=== PATIENT | female | born 1995 | race African-American/Black ===

== ENCOUNTER 2018-12-15 12:43 | Emergency (ER) | payer SELFPAY ==
[~2018-12-15] VITALS: Ht 165.1 cm; Wt 59.0 kg
[2018-12-15 12:53] VITALS: BP 131/87
== END 2018-12-15 15:39 | disposition left against medical advice (07) ==
LOC: ER 12:43
DX: Z53.21 Procedure and treatment not carried out due to patient leaving prior to being seen by health care provider (principal)

== ENCOUNTER 2018-12-16 09:15 | Emergency (ER) | payer OTHER ==
[~2018-12-16] VITALS: Ht 160 cm; Wt 62.0 kg
[2018-12-16] MEDS ORDERED: ACETAMINOPHEN 325MG TABLET PO ONE (12:15)
[2018-12-16 13:04] LABS: CLARITY URINE CLEAR (CLEAR); COLOR URINE YELLOW (YELLOW); KETONES URINE NEGATIVE (NEGATIVE); LEUKOCYTE ESTERASE URINE NEGATIVE (NEGATIVE); NITRITE URINE NEGATIVE (NEGATIVE); OCCULT BLOOD URINE 3+ (NEGATIVE); PROTEIN URINE NEGATIVE (NEGATIVE); SPECIFIC GRAVITY URINE 1.017 (1.005-1.030); UROBILINOGEN URINE 0.2 E.U./dL (0.2-1.0)
[2018-12-16 13:25] LABS: *AMPHETAMINES SCREEN URINE NEGATIVE (NEGATIVE); *BARBITURATES SCREEN URINE NEGATIVE (NEGATIVE); *BENZODIAZEPINES SCREEN URINE NEGATIVE (NEGATIVE); *COCAINE SCREEN URINE NEGATIVE (NEGATIVE)
[2018-12-16 13:26] LABS: METHADONE URINE SCREEN NEGATIVE (NEGATIVE); OPIATES URINE SCREEN NEGATIVE (NEGATIVE); PHENCYCLIDINE URINE SCREEN NEGATIVE (NEGATIVE)
[2018-12-16 13:27] LABS: CANNABINOID URINE SCREEN PRESUMTIVE POSITIVE (NEGATIVE)
[2018-12-16 16:19] VITALS: BP 121/68
== END 2018-12-16 16:19 | disposition home or self-care (01) ==
LOC: ER 09:48
DX: S93.601A Unspecified sprain of right foot, initial encounter (principal); R31.9 Hematuria, unspecified; R82.71 Bacteriuria; M43.9 Deforming dorsopathy, unspecified; J06.9 Acute upper respiratory infection, unspecified; Z87.440 Personal history of urinary (tract) infections; F12.10 Cannabis abuse, uncomplicated; Z98.890 Other specified postprocedural states; V49.88XA Car occupant (driver) (passenger) injured in other specified transport accidents, initial encounter; Y93.89 Activity, other specified; Y92.89 Other specified places as the place of occurrence of the external cause; Y99.8 Other external cause status
CPT/HCPCS: 73600; 73620; 80305; 81025; 99284

== ENCOUNTER 2019-02-21 16:41 | Emergency (ER) | payer SELFPAY ==
[~2019-02-21] VITALS: Ht 160 cm; Wt 61.0 kg
[2019-02-21] MEDS ORDERED: ONDANSETRON HCL 4MG/2ML INJ IV STA (17:43)
[2019-02-21] MEDS ORDERED: SODIUM CHLORIDE 0.9% 2,000 ML IV ONE (17:43)
[2019-02-21 17:57] LABS: HEMATOCRIT. 41.1 % (36.0-48.0); HEMOGLOBIN. 14.1 g/dL (12.0-16.0); MEAN CORPUSCULAR HEMOGLOBIN 33.4 pg (28.0-32.0); MEAN CORPUSCULAR VOLUME 97.2 fL (81.0-99.0); MEAN PLATELET VOLUME 9.3 fl (7.4-10.4); PLATELET 224 x1000/uL (130-400); RED BLOOD CELL COUNT 4.23 mill/uL (4.2-5.4); RED CELL DISTRIBUTION WIDTH 12.6 % (11.6-14.6)
[2019-02-21 18:02] LABS: CHLORIDE 105 mEq/L (98-107)
[2019-02-21 18:04] LABS: INR 1.4; PROTHROMBIN TIME 13.9 sec (9.6-11.0)
[2019-02-21 18:12] LABS: PLATELET ESTIMATE NORMAL
[2019-02-21 19:29] LABS: CLARITY URINE CLEAR (CLEAR); COLOR URINE YELLOW (YELLOW); KETONES URINE NEGATIVE (NEGATIVE); LEUKOCYTE ESTERASE URINE NEGATIVE (NEGATIVE); NITRITE URINE NEGATIVE (NEGATIVE); OCCULT BLOOD URINE NEGATIVE (NEGATIVE); PH URINE 6.5 (4.5-8.0); PROTEIN URINE TRACE (NEGATIVE); UROBILINOGEN URINE 0.2 E.U./dL (0.2-1.0)
[2019-02-21 20:38] LABS: UCG SCREEN NEGATIVE
[2019-02-21 21:15] VITALS: BP 126/72
== END 2019-02-21 21:37 | disposition home or self-care (01) ==
LOC: ER 16:41
DX: R10.84 Generalized abdominal pain (principal); R11.2 Nausea with vomiting, unspecified; F12.10 Cannabis abuse, uncomplicated; Z98.890 Other specified postprocedural states
CPT/HCPCS: 36415; 80053; 81003; 81025; 83690; 85025; 85610; 96361; 96374; 99283; J2405; J7030